=== PATIENT | male | born 1980 | race Caucasian/White ===

== ENCOUNTER 2022-01-09 20:33 | Emergency (ER) | payer SELFPAY ==
[~2022-01-09] VITALS: Ht 188 cm; Wt 99.4 kg
[2022-01-09 20:58] VITALS: BP 151/92
[2022-01-09] MEDS ORDERED: DOXY100T PO (21:17)
--- NOTE | 2022-01-09 21:17 | PHYS DOC ---
Past Medical History Past Surgical History: No Surgical History General Adult EDM: Chief Complaint: SEXUALLY TRANSMITTED DISEASE HPI: HPI: Patient is a 41 year old male presenting to the ED today complaining of dysuria, foul-smelling yellow penile discharge, symptoms began a week ago. Patient is in the ED with a new girlfriend who is being seen for STDs as well. Review of Systems: Review of Systems: Constitutional: Denies fever or chills. [] GI: Denies abdominal pain, nausea, vomiting, bloody stools or diarrhea. [] : Reports dysuria and foul-smelling penile discharge Musculoskeletal: Denies back pain or joint pain. [] Integument: Denies rash. [] Neurologic: Denies headache, focal weakness or sensory changes. [] Psychiatric: Denies depression or anxiety. [] Heart Score: C/O Chest Pain: N/A Risk Factors: Risk Factors: DM, Current or recent (<one month) smoker, HTN, HLP, family history of CAD, obesity. Risk Scores: Score 0 - 3: 2.5% MACE over next 6 weeks - Discharge Home Score 4 - 6: 20.3% MACE over next 6 weeks - Admit for Clinical Observation Score 7 - 10: 72.7% MACE over next 6 weeks - Early Invasive Strategies Current Medications: Current Medications Medications (Trade) Dose Ordered Sig/Jorden Start Time Stop Time Status Last Admin Dose Admin Ceftriaxone Sodium (Rocephin Im) 500 mg 1X ONCE 01/09/22 21:15 01/09/22 21:16 UNV Doxycycline Hyclate (Vibra-Tab) 100 mg 1X ONCE 01/09/22 21:15 01/09/22 21:16 UNV Metronidazole (Flagyl) 2,000 mg 1X ONCE 01/09/22 21:15 01/09/22 21:16 UNV Allergies: Allergies: Allergies Coded Allergies Type Severity Reaction Last Updated Verified No Known Drug Allergies 01/09/22 No Physical Exam: PE: Constitutional: Well developed, well nourished, no acute distress, non-toxic appearance. []] Abdomen: Bowel sounds normal, soft, no tenderness, no masses, no pulsatile masses. [] Skin: Warm, dry, no erythema, no rash. [] Back: No tenderness, no CVA tenderness. [] Extremities: No tenderness, no cyanosis, no clubbing, ROM intact, no edema. [] Neurologic: Alert and oriented X 3, normal motor function, normal sensory function, no focal deficits noted. [] Psychologic: Affect normal, judgement normal, mood normal. [] Current Patient Data: Vital Signs: Vital Signs Date Time Temp Pulse Resp B/P (MAP) Pulse Ox O2 Delivery O2 Flow Rate FiO2 01/09/22 20:58 98.0 115 20 151/92 (111) 96 Room Air 98.0 EKG: EKG: [] Radiology/Procedures: Radiology/Procedures: [] Course & Med Decision Making: Course & Med Decision Making Pertinent Labs and Imaging studies reviewed. (See chart for details) This a 41-year-old male patient presenting to the ED today with STD concerns. Patient has foul-smelling discharge with dysuria for a week. Was treated for STDs. Education provided as well as return precautions Dragon Disclaimer: Dragon Disclaimer: This electronic medical record was generated, in whole or in part, using a voice recognition dictation system. Departure Departure Impression: Primary Impression: Concern about STD in male without diagnosis Disposition: 01 HOME / SELF CARE / HOMELESS Condition: STABLE Patient Instructions: Sexually Transmitted Disease Additional Instructions: You were treated for sexually transmitted diseases, ensure you complete the prescribed antibiotics. Do not have any sex for 1 week. Use protection all the time. Please let your partners know you were treated for STDs and ask them to seek treatment. Complete the prescribed antibiotics Scripts Doxycycline Hyclate (DOXYCYCLINE HYCLATE) 100 Mg Tablet 1 TAB PO BID, #14 TAB Prov: SELVIN CAREY APRN 01/09/22 SELVIN CAREY APRN January 09, 2022 21:17
[2022-01-09 21:45] LABS: BACTERIA,URINE MANY /HPF (0-FEW); WBC,URINE TNTC /HPF (0-4)
[2022-01-09] MEDS ORDERED: cefTRIAXone IM 500 MG VIAL. IM ONE (22:00)
[2022-01-09] MEDS ORDERED: DOXYCYCLINE HYCLATE 100 MG TABLET PO ONE (22:00)
[2022-01-09] MEDS ORDERED: metroNIDAZOLE 500 MG TABLET PO ONE (22:00)
== END 2022-01-09 22:00 | disposition home or self-care (01) ==
LOC: ER 20:33
DX: R30.0 Dysuria (principal); Z20.2 Contact with and (suspected) exposure to infections with a predominantly sexual mode of transmission; R36.9 Urethral discharge, unspecified
CPT/HCPCS: 81001; 87086; 87491; 87591; 96372; 99283; J0696